=== PATIENT | male | born 1985 | race Caucasian/White ===

== ENCOUNTER 2016-10-24 16:40 | Emergency (ER) | payer MEDICAID ==
[2016-10-24 21:30] VITALS: BP 110/57
== END 2016-10-24 21:30 | disposition home or self-care (01) ==
LOC: ED 16:40
DX: S02.2XXA Fracture of nasal bones, initial encounter for closed fracture (principal); S01.83XA Puncture wound without foreign body of other part of head, initial encounter; S09.90XA Unspecified injury of head, initial encounter; G40.909 Epilepsy, unspecified, not intractable, without status epilepticus; Z79.899 Other long term (current) drug therapy; Y04.2XXA Assault by strike against or bumped into by another person, initial encounter; Y93.89 Activity, other specified; Y92.89 Other specified places as the place of occurrence of the external cause; Y99.8 Other external cause status